=== PATIENT | male | born 1970 | race Caucasian/White ===

== ENCOUNTER 2021-06-24 10:14 | Observation (INO) | payer OTHER ==
[2021-06-24] MEDS ORDERED: ACETAMINOPHEN 1000 MG/100 ML BAG IVPB ONE (11:06)
[2021-06-24] MEDS ORDERED: LIDO 2%/EPI 1:200000 PRESRVFRE (20 ML SDVIAL) INF ONE (11:06)
[2021-06-24] MEDS ORDERED: ASPIRIN 81 MG CHEWABLE TABLETS PO ONE (11:06)
[2021-06-24] MEDS ORDERED: SODIUM CHLORIDE 0.9% 500 ML INFUS.BAG IV ONE (11:06)
[2021-06-24] MEDS ORDERED: ACETAMINOPHEN INJECTION 100 ML IVPB ONE (11:11)
[2021-06-24] MEDS ORDERED: ASPIRIN 81 MG CHEWABLE TABLETS ONE (11:11)
[2021-06-24] MEDS ORDERED: LIDOCAINE 5% TOPICAL PATCH TP ONE (11:12)
[2021-06-24] MEDS ORDERED: LIDOCAINE 5% TOPICAL PATCH ONE (11:17)
[2021-06-24 11:51] LABS: BASO % 0.3 % (0-2.0); EOS % 0.1 % (0-4.5); HEMATOCRIT 46.9 % (35.4-49); HEMOGLOBIN 16.6 GM/dL (11.7-16.9); LYMPH % 9.5 % (8-40); MCH 31.9 pg (25.7-33.7); MCHC 35.3 g/dl (32.0-35.9); MEAN CELL VOLUME 90.5 fl (80-96); MEAN PLT VOLUME 11.2 fl (7.5-11.1); MONO % 7.3 % (3.8-10.2); NEUT % 82.8 % (42.8-82.8); PLATELET COUNT 103 10^3/uL (134-434); RBC 5.19 M/mm3 (4.00-5.60); RDW 12.7 % (11.9-15.9); WHITE BLOOD COUNT 8.4 K/mm3 (4.0-10.0)
[2021-06-24 11:54] LABS: INR 1.04 (0.83-1.09)
[2021-06-24 11:57] LABS: ACTIVATED PTT 28.8 SECONDS (25.2-36.5)
[2021-06-24 12:08] LABS: CALCIUM 8.6 mg/dL (8.5-10.1)
[2021-06-24 12:09] LABS: ALBUMIN 4.1 g/dl (3.4-5.0); BLOOD UREA NITROGEN 13.2 mg/dL (7-18); MAGNESIUM 2.3 mg/dL (1.8-2.4)
[2021-06-24 12:11] LABS: CREATININE 0.9 mg/dL (0.55-1.3)
[2021-06-24 12:12] LABS: PHOSPHOROUS 2.6 mg/dL (2.5-4.9)
[2021-06-24 12:13] LABS: TOT PROT 8.3 g/dl (6.4-8.2)
[2021-06-24 12:17] LABS: N-TERMINAL BNP 16.9 pg/ml (5-125)
[2021-06-24] MEDS ORDERED: ACETAMINOPHEN 325 MG TABLET (FP) PO PRN (16:40)
[2021-06-24] MEDS ORDERED: LIDOCAINE PATCH REMOVAL MC ONE (22:00)
[2021-06-24] MEDS ORDERED: ATORVASTATIN CA 40 MG TABLET (FP) PO SCH (22:00)
[2021-06-24 22:29] VITALS: BMI 29.7
[2021-06-25 06:27] VITALS: PULSE 69
[2021-06-25 07:07] LABS: CALCIUM 7.8 mg/dL (8.5-10.1)
[2021-06-25 07:08] LABS: BLOOD UREA NITROGEN 15.1 mg/dL (7-18)
[2021-06-25 07:12] LABS: BILIRUBIN,TOTAL 0.9 mg/dL (0.2-1); TOT PROT 6.8 g/dl (6.4-8.2)
[2021-06-25 07:17] LABS: HEMATOCRIT 44.2 % (35.4-49); HEMOGLOBIN 15.3 GM/dL (11.7-16.9); MCH 31.9 pg (25.7-33.7); MCHC 34.6 g/dl (32.0-35.9); MEAN CELL VOLUME 92.2 fl (80-96); MEAN PLT VOLUME 11.7 fl (7.5-11.1); PLATELET COUNT 102 10^3/uL (134-434); RBC 4.79 M/mm3 (4.00-5.60); RDW 12.7 % (11.9-15.9); WHITE BLOOD COUNT 8.1 K/mm3 (4.0-10.0)
[2021-06-25 07:27] LABS: ALBUMIN 3.2 g/dl (3.4-5.0)
[2021-06-25] MEDS ORDERED: ASPIRIN COATED 81 MG TABLET.EC PO SCH (10:00)
[2021-06-25 13:28] VITALS: BP 121/84; TEMP 98.7
[2021-06-25 15:05] LABS: PLATELET ESTIMATE SLT DECREASE
== END 2021-06-25 15:28 | disposition home or self-care (01) ==
LOC: JER 10:14 → UNDOADMOB 14:02 → INTOOBSV 14:02 → JERBED 14:02 → J4W 21:05 → JERBED 06-25 11:44
PROVIDERS: ADMIT Internal Medicine; ATTEND Family Medicine
PROC: 3E033NZ Introduction of Analgesics, Hypnotics, Sedatives into Peripheral Vein, Percutaneous Approach (ICD-10-PCS; principal; 2021-06-25)
PROC: 3E0337Z Introduction of Electrolytic and Water Balance Substance into Peripheral Vein, Percutaneous Approach (ICD-10-PCS; 2021-06-25)
DX: R07.9 Chest pain, unspecified (principal); R51.9 Headache, unspecified; R42 Dizziness and giddiness; E78.00 Pure hypercholesterolemia, unspecified; I10 Essential (primary) hypertension; R94.5 Abnormal results of liver function studies; R01.1 Cardiac murmur, unspecified
CPT/HCPCS: 36415; 70450-TC; 71045-TC-FY; 78452-TC; 80053; 80061; 83036; 83735; 83880; 84100; 84443; 84484; 85025; 85027; 85610; 85730; 93005; 93010; 93017; 93306-TC; 96374; 97116-GP; 97161-GP; 99285-25; A9502; C9803-CS; G0378; U0003; U0005